=== PATIENT | female | born 1930 | race Caucasian/White ===

== ENCOUNTER → 2017-09-11 | Outpatient (CLI) | payer MEDICARE, BC | END | disposition home or self-care (01) | LOC: PCVCIMAG 08:17 | DX: I10 Essential (primary) hypertension (principal); E11.9 Type 2 diabetes mellitus without complications; E78.5 Hyperlipidemia, unspecified; I47.1 Supraventricular tachycardia; C50.919 Malignant neoplasm of unspecified site of unspecified female breast; I34.0 Nonrheumatic mitral (valve) insufficiency; N28.1 Cyst of kidney, acquired | CPT/HCPCS: 76770; 93306; 93975 ==